=== PATIENT | male | born 1975 | race Hispanic/Latino ===

== ENCOUNTER 2017-10-01 14:06 | Emergency (ER) | payer MEDICAID ==
[2017-10-01 14:27] VITALS: BP 128/78; PULSE 113; RESP 16; TEMP 97.1; O2SAT 98
[2017-10-01 14:59] LABS: BASO # 0.1 K/uL (0.0-0.2); BASO % 0.6 % (0.0-2.0); HEMOGLOBIN 12.1 g/dL (12.0-18.0); LYMPH # 2.1 K/uL (1.0-4.3); LYMPH % 13.2 % (20.0-40.0); MEAN CELL VOLUME 89.1 fl (80.0-94.0); MEAN CORPUSCULAR HEMOGLOBIN 28.7 pg (27.0-31.0); MEAN CORPUSCULAR HGB CONC 32.2 g/dL (33.0-37.0); MEAN PLATELET VOLUME 9.1 fl (7.2-11.7); MONO # 1.5 K/uL (0.0-0.8); MONO % 9.5 % (0.0-10.0); NEUT # 12.1 K/uL (1.8-7.0); NEUT % 76.7 % (50.0-75.0); NRBC % 0.2 % (0.0-0.0); RBC 4.2 Mil/uL (4.40-5.90); RED CELL DISTRIBUTION WIDTH 14.6 % (11.5-14.5); WHITE BLOOD COUNT 15.7 K/uL (4.8-10.8)
--- NOTE | 2017-10-01 15:00 | ED PDOC ---
HPI: Male Pain Time Seen by Provider: 10/01/17 14:30 Chief Complaint (Nursing): Male Genitourinary Chief Complaint (Provider): Male Genitourinary History Per: Patient History/Exam Limitations: no limitations Onset/Duration Of Symptoms: Days (x today) Current Symptoms Are (Timing): Still Present Additional Complaint(s): Jamel is a 42 year old male who presents to the emergency department complaining of right-sided testicular pain and swelling. Patient states he noticed right-sided swelling this morning at 02:00. Patient reports when he woke up right testes was still swollen. Denies any penile discharge, fevers or chills. PMD: Boris Patton Past Medical History Reviewed: Historical Data, Nursing Documentation, Vital Signs Vital Signs: Last Vital Signs Temp 97.1 F L 10/01/17 14:24 Pulse 113 H 10/01/17 14:24 Resp 16 10/01/17 14:24 BP 128/78 10/01/17 14:24 Pulse Ox 98 10/01/17 14:24 - Medical History PMH: No Chronic Diseases - Surgical History Surgical History: No Surg Hx - Family History Family History: States: Unknown Family Hx - Social History Current smoker - smoking cessation education provided: Yes Alcohol: Other (yes) Drugs: Denies - Allergies Allergies/Adverse Reactions: Allergies Allergy/AdvReac Type Severity Reaction Status Date / Time No Known Allergies Allergy Verified 10/01/17 14:24 Review of Systems Constitutional: Negative for: Fever, Chills Genitourinary Male: Positive for: Other (right-sided scrotum swelling). Negative for: Penile Discharge Physical Exam - Reviewed Nursing Documentation Reviewed: Yes Vital Signs Reviewed: Yes - Physical Exam Male Genital Exam: Positive for: scrotum tenderness (R), other (Left scrotum: normal with normal feeling. Right Scrotum: Erythema , induration, and firmness within the right scrotum, mildly tendered) - Laboratory Results Result Diagrams: 10/01/17 14:51 10/01/17 14:51 - ECG O2 Sat by Pulse Oximetry: 98 (RA) Pulse Ox Interpretation: Normal Medical Decision Making Medical Decision Making: Time: 14:31 Differentials include, but not limited to: Torsion, Hernia, epididymitis Plan: - BMP - CBC - Urinalysis - Testicular Ultrasound Scribe Attestation: Documented by Leoncio Larson, acting as a scribe for Jem Ventura MD Provider Scribe Attestation: All medical record entries made by the Scribe were at my direction and personally dictated by me. I have reviewed the chart and agree that the record accurately reflects my personal performance of the history, physical exam, medical decision making, and the department course for this patient. I have also personally directed, reviewed, and agree with the discharge instructions and disposition. Disposition - Clinical Impression Clinical Impression: Testicular swelling, right - Patient ED Disposition Is Patient to be Admitted: Transfer of Care - Disposition Disposition: Transfer of Care Disposition Time: 16:44 Condition: STABLE Forms: Mirego (Kinyarwanda) Patient Signed Over To: Josh Mora Present On Arrival: None
[2017-10-01 15:11] LABS: BLOOD UREA NITROGEN 17 mg/dl (9-20); CALCIUM 8.7 mg/dL (8.4-10.2); GFR AFRICAN-AMERICAN > 60; GFR NON-AFRICAN AMERICAN > 60
[2017-10-01 15:33] LABS: SQUAMOUS EPITHIAL < 1 /hpf (0-5); URINE BACTERIA OCC (<OCC); URINE BILIRUBIN NEGATIVE (NEGATIVE); URINE BLOOD SMALL (NEGATIVE); URINE CLARITY CLOUDY (Clear); URINE COLOR AMBER (YELLOW); URINE GLUCOSE (UA) NEG (Normal); URINE HYALINE CAST 0-2 /hpf (0-2); URINE LEUKOCYTE ESTERASE MOD Leu/uL (Negative); URINE NITRATE NEGATIVE (NEGATIVE); URINE PROTEIN 30 mg/dL (NEGATIVE); URINE UROBILINOGEN 0.2-1.0 mg/dL (0.2-1.0)
--- NOTE | 2017-10-01 17:15 | US ---
HISTORY: Testicular swelling TECHNIQUE: Realtime sonography through the scrotum with color and doppler flow. COMPARISON: None FINDINGS: RIGHT TESTICLE: Measures 5.1 x 2.9 x 2.9 cm. There is diffuse heterogeneous echotexture and increased flow. RIGHT EPIDIDYMIS: Epididymal head measures 2.2 x 1.3 x 1.3 cm. The right epididymis is enlarged with heterogeneous echotexture and diffuse increased vascularity. LEFT TESTICLE: Measures 4.4 x 1.7 x 2.6 cm. Normal echotexture and mild increased flow. LEFT EPIDIDYMIS: Epididymal head measures 1.1 x 0.9 x 2.0 cm. The epididymis is enlarged and has heterogeneous echotexture with increased vascularity. HYDROCELE: There is a moderate complicated right hydrocele. No left hydrocele. VARICOCELE: None. OTHER FINDINGS: None. IMPRESSION: 1. Severe right epididymo-orchitis. Complicated moderate right hydrocele. 2. Left epididymitis. Suspect mild left orchitis.
== END 2017-10-01 17:15 | disposition home or self-care (01) ==
LOC: H.ER 14:06
DX: N43.3 Hydrocele, unspecified (principal); N45.3 Epididymo-orchitis

== ENCOUNTER 2018-03-24 13:02 | Emergency (ER) | payer MEDICAID, SELFPAY ==
[2018-03-24] MEDS ORDERED: Tdap Vaccine 0.5 ml Vial (10-64 yrs) IM ONE (13:21)
[2018-03-24] MEDS ORDERED: Vancomycin 1 g Inj ONE (13:31)
--- NOTE | 2018-03-24 13:32 | ED PDOC ---
HPI: Wound Care - HPI Time Seen by Provider: 03/24/18 13:19 Chief Complaint (Nursing): Wound Check Chief Complaint (Provider): Abscess History Per: Patient History Of Present Illness: 42 year old male presents to the emergency room with an abscess to his right arm. Patient reports that for the past 3 days there has been purulent discharge from the affected area. Patient admits IVDA. Tetanus not up to date. Denies fever, chills. Exam Limitations: no limitations Current Symptoms Are (Timing): Still Present Location Of Injury: Right: Arm Severity: None Past Medical History Reviewed: Historical Data, Nursing Documentation, Vital Signs Vital Signs: Last Vital Signs Temp 97.8 F 03/24/18 13:09 Pulse 95 H 03/24/18 13:09 Resp 16 03/24/18 13:09 BP 121/78 03/24/18 13:09 Pulse Ox 97 03/24/18 13:09 - Medical History PMH: No Chronic Diseases - Surgical History Surgical History: No Surg Hx - Family History Family History: States: Unknown Family Hx - Home Medications Home Medications: Ambulatory Orders Medication Instructions Recorded Ciprofloxacin HCl [Cipro] 500 mg PO BID #28 tablet 10/01/17 Cephalexin [Keflex] 500 mg PO QID #28 capsule 03/24/18 Sulfamethoxazole/Trimethoprim 2 tab PO BID #28 tab 03/24/18 [Bactrim DS 800 mg-160 mg] - Allergies Allergies/Adverse Reactions: Allergies Allergy/AdvReac Type Severity Reaction Status Date / Time No Known Allergies Allergy Verified 03/24/18 13:09 Review of Systems ROS Statement: Except As Marked, All Systems Reviewed And Found Negative Constitutional: Negative for: Fever, Chills Musculoskeletal: Positive for: Other (abscess to right arm). Negative for: Arm Pain, Hand Pain Physical Exam - Reviewed Nursing Documentation Reviewed: Yes Vital Signs Reviewed: Yes - Physical Exam Appears: Positive for: Non-toxic, No Acute Distress Extremity: Positive for: Normal ROM (Normal ROM of right arm), Other (3cm abscess to right arm with purulent discharge and surrounding erythema). Negative for: Tenderness, Deformity, Swelling Neurologic/Psych: Positive for: Alert, Oriented - ECG O2 Sat by Pulse Oximetry: 97 (RA) Pulse Ox Interpretation: Normal - Progress ED Course And Treament: PROCEDURE: VERBAL CONSENT PRIOR TO PROCEDURE. MODERATE PRULULENT DISCHARGE EXPRESSED. NONADHERENT DRESSING APPLIED PATIENT TO F/U WITH WOUND CARE CLINIC Medical Decision Making Medical Decision Makin Initial Impression 42 year old male presenting with abscess to right arm Initial Plan: * Adacel (10-64 yrs) 0.5 ml IM * Vancomycin inj * Reevaluation Patient is medically stable and will be discharged home with keflex and bactrim. NELSON MILLER, thank you for letting us take care of you today. Your provider was Jem Ventura MD and you were treated for WOUND CHECK. The emergency medical care you received today was directed at your acute symptoms. If you were prescribed any medication, please fill it and take as directed. It may take several days for your symptoms to resolve. Return to the Emergency Department if your symptoms worsen, do not improve, or if you have any other problems. Please contact your doctor or call one of the physicians/clinics you have been referred to that are listed on the Patient Visit Information form that is included in your discharge packet. Bring any paperwork you were given at discharge with you along with any medications you are taking to your follow up visit. Our treatment cannot replace ongoing medical care by a primary care provider outside of the emergency department. Thank you for allowing the [facility] team to be part of your care today. -------- Documented by Tatyana Ahn acting as a scribe for Lincoln Hurtado PA-C. All medical record entries made by the Scribe were at my direction and personally dictated by me. I have reviewed the chart and agree that the record accurately reflects my personal performance of the history, physical exam, medical decision making, and the department course for this patient. I have also personally directed, reviewed, and agree with the discharge instructions and disposition. Disposition - Clinical Impression Clinical Impression: Cellulitis - Patient ED Disposition Is Patient to be Admitted: No Counseled Patient/Family Regarding: Studies Performed, Diagnosis - Disposition Referrals: [facility] [Outside] Disposition: Routine/Home Disposition Time: 14:49 Condition: FAIR Additional Instructions: RETURN OR F/U IN 2 DAYS FOR WOUND EVALUATION. Prescriptions: Cephalexin [Keflex] 500 mg PO QID #28 capsule Sulfamethoxazole/Trimethoprim [Bactrim DS 800 mg-160 mg] 2 tab PO BID #28 tab Instructions: Skin Abscess, Cellulitis (Skin Infection), Adult (DC) - POA Present On Arrival: None
[2018-03-24 15:22] VITALS: BP 128/72; PULSE 76; RESP 18; TEMP 98.5
[2018-03-24 22:13] VITALS: O2SAT 97
== END 2018-03-24 15:23 | disposition home or self-care (01) ==
LOC: H.ER 13:02
DX: L03.113 Cellulitis of right upper limb (principal); L02.413 Cutaneous abscess of right upper limb